=== PATIENT | female | born 1975 | race Caucasian/White ===

== ENCOUNTER 2019-03-05 07:05 | Inpatient (IN) | payer OTHER ==
[~2019-03-05] VITALS: Ht 157.5 cm; Wt 79.0 kg
[2019-03-05 08:18] LABS: BASOPHIL % 0.5 % (0-2); PLATELET COUNT 347 x10^3mcL (130-400); RED CELL DISTRIBUTION WIDTH 13.7 % (11.5-14.5)
[2019-03-05 08:47] LABS: UA SPECIFIC GRAVITY >=1.030 (1.005-1.035); microscopic required? YES; urine erythrocyte TRACE (NEGATIVE)
[2019-03-05 09:37] LABS: CALCIUM 8.5 mg/dL (8.5-10.1); CARBON DIOXIDE 25.4 mmol/L (21-32); CHLORIDE SERUM 105 mmol/L (98-107); CREATININE SERUM 0.8 mg/dL (0.6-1.0); GFR1 > 60 mL/min; GLUCOSE SERUM 114 mg/dL (74-106); POTASSIUM SERUM 3.8 mmol/L (3.5-5.1); SODIUM SERUM 142 mmol/L (136-145)
--- NOTE | 2019-03-05 09:45 | NUR ---
PATIENT RESTING IN BED WITH C/O INTERMITTENT SHARP PAIN IN RIGHT LOWER BACK. IFORMED O PATIENT STAUS. ADVISED HE WILL REVIEW CT RESULTS. PATIENT INFORMED OF MD PLAN OF CARE. VSS. FAMILY AT BEDSIDE. BED LOW AND IN LOCKED POSITION WITH SIDE RAILS UP X 2. CALL MCCOY IN REACH. CM NSR WITH NO ECTOPY NOTED. WILL CONTINUE TO MONTTOR FOR CHANGES.
[2019-03-05 09:53] LABS: ALBUMIN 3.5 g/dL (3.4-5.0); ALKALINE PHOSPHATASE 64 U/L (46-116); ALT/SGPT 33 U/L (14-59); AST/SGOT 15 U/L (15-37); BILIRUBIN TOTAL 0.68 mg/dL (0.20-1.00); CHOLESTEROL 191 mg/dL (<200); CHOLESTEROL/HDL RATIO 4.4; HDL CHOLESTEROL 43 mg/dL (40-60); TOTAL PROTEIN, SERUM 7.3 g/dL (6.4-8.2); TRIGLYCERIDES 105 mg/dL (<150)
--- NOTE | 2019-03-05 12:34 | NUR ---
RECEIVED PT FROM ED. PT AOX4, FOLLOWS COMMANDS, SPEECH CLEAR, PERRLA, DENIES HEADACHE, DROWSY AT THIS TIME DUE TO PAIN MEDS RECEIVED IN ED. RESP E/U ON RA, EQUAL CHEST RISE, LUNG SOUNDS CTA, DENIES SOB. HR: 73, S1 AND S2 WNL, DENIES CHEST PAIN OR PALPITATIONS. ABD SOFT/ROUND/NONTENDER, BS ACTIVE, DENIES N/V. PT C/O OF PAIN TO R FLANK 10, MEDICATED ORDERED PER EMAR, DENIES PAINFUL OR BURNING URINE. SMALL SX INCISION TO L FOOT W/ CLEAR DRESSING CDI, HX OF FOOT SX ONE MONTH AGO. IV TO LAC W/ NO ERYTHEMA OR EDEMA. BED IN LOWEST POSITION AND CALL LIGHT WITHIN REACH. WILL CONTINUE TO MONITOR.
[2019-03-05 13:47] VITALS: BP 131/70
[2019-03-05 13:51] VITALS: Ht 157.5 cm; Wt 79.0 kg
[2019-03-05 17:45] VITALS: BP 116/77
--- NOTE | 2019-03-05 18:20 | NUR ---
PT IN BED SLEEPING, AROUSABLE, RESP E/U ON RA. NO SIGNS OF ACUTE DISTRESS NOTED. IV TO LAC W/ NO SIGNS OF INFILTRATION, IVF INFUSING WELL. BED IN LOWEST POSITION AND CALL LIGHT WITHIN REACH. WILL ENDORSE TO ONCOMING NURSE.
[2019-03-05 19:11] VITALS: BP 116/69
--- NOTE | 2019-03-05 19:50 | NUR ---
RECEIVED PT FROM PREVIOUS SHIFT. PT A/OX4. DENIES SOB ON RA. C/O 01/[address] MADE AWARE. IV PATENT, INFUSING WELL WITH NO S/S OF INFILTRATION. AT BEDSIDE. CALL LIGHT WITHIN REACH, BED IN LOW POSITION. WILL CONTINUE TO MONITOR.
--- NOTE | 2019-03-05 20:17 | NUR ---
PT C/O 01/27 PAIN TO R FLANK. ORDER RECEIVED FOR MORPHINE 2MG IVP. MEDICATION ADMINISTERED PRN PER EMAR. WILL CONTINUE TO MONITOR.
--- NOTE | 2019-03-06 00:17 | NUR ---
PT RESTING IN NO ACUTE DISTRESS. RR EVEN AND UNLABORED. IV PATENT AND INFUSING WELL WITH NO S/S OF INFILTRATION. AT BEDSIDE. CALL LIGHT WITHIN REACH, BED IN LOW POSITION. WILL CONTINUE TO MONITOR.
[2019-03-06 04:30] VITALS: BP 95/57
[2019-03-06 05:28] VITALS: BP 95/57
[2019-03-06 06:30] LABS: CALCIUM 7.7 mg/dL (8.5-10.1); CARBON DIOXIDE 25.7 mmol/L (21-32); CHLORIDE SERUM 105 mmol/L (98-107); CREATININE SERUM 0.8 mg/dL (0.6-1.0); GFR1 > 60 mL/min; GLUCOSE SERUM 100 mg/dL (74-106); POTASSIUM SERUM 3.5 mmol/L (3.5-5.1); SODIUM SERUM 139 mmol/L (136-145)
[2019-03-06 06:39] LABS: BASOPHIL % 0.5 % (0-2); PLATELET COUNT 284 x10^3mcL (130-400); RED CELL DISTRIBUTION WIDTH 13.4 % (11.5-14.5)
--- NOTE | 2019-03-06 07:06 | NUR ---
RECEIVED PT FROM STITCH CLEANER NURSE. PT IN BED SLEEPING, AROUSABLE, RESP E/U ON RA. NO SIGNS OF ACUTE DISTRESS NOTED. IV TO LAC W/ NO SIGNS OF INFILTRATION, IVF INFUSING WELL. BED IN LOWEST POSITION AND CALL LIGHT WITHIN REACH. PT AT BEDISDE. WILL CONTINUE TO MONITOR.
[2019-03-06 07:22] VITALS: BP 95/63
[2019-03-06] MEDS ORDERED: BACDS PO (09:44)
[2019-03-06 10:53] VITALS: BP 95/63
--- NOTE | 2019-03-06 11:16 | NUR ---
PT DISCHARGED. REVIEWED DISCHARGE PACKET W/ PT INCLUDING NEW RX MEDS AND FOLLOW UP INSTRUCTIONS. PT AOX4, RESP E/U ON RA, VS STABLE, DENIES PAIN. IV TO LAC REMOVED, CATH INTACT, GAUZE DRESSING APPLIED. PT AMBULATORY TO PRIYANKA, ESCORTED BY AND POLY TOLLIVER W/ NO ACUTE INCIDENCE.
== END 2019-03-06 11:08 | disposition home or self-care (01) | DRG 445 ==
LOC: ED 07:05 → MU 11:47
PROVIDERS: Specialist; ADMIT Internal Medicine
DX: K80.20 Calculus of gallbladder without cholecystitis without obstruction (principal); N39.0 Urinary tract infection, site not specified; N20.0 Calculus of kidney; E66.01 Morbid (severe) obesity due to excess calories
CPT/HCPCS: C9113; G0378; J0696; J1885; J1940; J2270; J2405; J7030

== ENCOUNTER 2019-07-17 00:03 | Emergency (ER) | payer OTHER ==
[~2019-07-17] VITALS: Ht 157.5 cm; Wt 83.0 kg
[~2019-07-17 00:03] MED LIST: BACDS PO
[2019-07-17 00:07] VITALS: Ht 157.5 cm; Wt 83.0 kg
[2019-07-17 02:18] VITALS: BP 128/89
== END 2019-07-17 02:18 | disposition home or self-care (01) ==
LOC: ED 00:03
DX: R09.1 Pleurisy (principal); R07.89 Other chest pain
CPT/HCPCS: 87804; J1885; Q0092